=== PATIENT | female | born 2000 | race Caucasian/White ===

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

== ENCOUNTER 2018-01-13 20:42 | Emergency (ER) | payer MEDICAID ==
[~2018-01-13] VITALS: Ht 185.4 cm; Wt 83.9 kg
[2018-01-13 20:49] VITALS: BP_SYST 154
[2018-01-13] MEDS ORDERED: NAPROXEN 250 MG TABLET PO ONE (22:00)
[2018-01-13] MEDS ORDERED: NAPROXEN 250 MG TABLET ONE (22:11)
[2018-01-13 22:20] VITALS: BP_SYST 154
== END 2018-01-13 22:20 | disposition home or self-care (01) ==
LOC: SED 20:42
DX: M70.31 Other bursitis of elbow, right elbow (principal); F41.9 Anxiety disorder, unspecified; F32.9 Major depressive disorder, single episode, unspecified; J45.909 Unspecified asthma, uncomplicated; R03.0 Elevated blood-pressure reading, without diagnosis of hypertension; Z88.0 Allergy status to penicillin; Z88.1 Allergy status to other antibiotic agents
CPT/HCPCS: 99284

== ENCOUNTER 2018-05-14 15:11 | Emergency (ER) | payer MEDICAID ==
[~2018-05-14] VITALS: Ht 182.9 cm; Wt 83.9 kg
[2018-05-14 15:25] VITALS: BP_SYST 127
[2018-05-14 17:15] VITALS: BP_SYST 127
== END 2018-05-14 17:15 | disposition home or self-care (01) ==
LOC: SED 15:11
DX: S63.91XA Sprain of unspecified part of right wrist and hand, initial encounter (principal); F17.210 Nicotine dependence, cigarettes, uncomplicated; J45.909 Unspecified asthma, uncomplicated; F41.9 Anxiety disorder, unspecified; F32.9 Major depressive disorder, single episode, unspecified; Z88.0 Allergy status to penicillin; Z88.1 Allergy status to other antibiotic agents; Z71.6 Tobacco abuse counseling; W22.8XXA Striking against or struck by other objects, initial encounter; Y93.89 Activity, other specified; Y92.89 Other specified places as the place of occurrence of the external cause; Y99.8 Other external cause status
CPT/HCPCS: 99283

== ENCOUNTER 2018-08-17 16:13 | Emergency (ER) | payer MEDICAID ==
[~2018-08-17] VITALS: Ht 185.4 cm; Wt 84.4 kg
[2018-08-17 16:20] VITALS: BP_SYST 141
== END 2018-08-17 17:54 | disposition left against medical advice (07) ==
LOC: SED 16:13
DX: J00 Acute nasopharyngitis [common cold] (principal); R05 Cough; F41.9 Anxiety disorder, unspecified; F32.9 Major depressive disorder, single episode, unspecified; Z53.21 Procedure and treatment not carried out due to patient leaving prior to being seen by health care provider

== ENCOUNTER 2018-08-18 09:48 | Emergency (ER) | payer MEDICAID ==
[~2018-08-18] VITALS: Ht 185.4 cm; Wt 84.4 kg
[2018-08-18 10:15] VITALS: BP_SYST 135
--- NOTE | 2018-08-18 10:15 | NUR ---
Patient to ER bed 5 to gown for evaluation. Side rails up. Report given to BRODIE Cosme.
--- NOTE | 2018-08-18 10:26 | NUR ---
Patient is awake, alert, and oriented x4. States, "I'm feeling like I can't breathe, because I'm sick." Patient reports feeling like this for 5 days.
--- NOTE | 2018-08-18 10:45 | NUR ---
ER Dr. Matthew at bedside examining patient.
[2018-08-18 11:00] VITALS: BP_SYST 128
--- NOTE | 2018-08-18 11:00 | NUR ---
Patient given written and verbal discharge instructions and verbalizes understanding. ER MD discussed with patient the results and treatment provided. Patient in stable condition. ID arm band removed. Rx of promethazine with codeine given. Patient educated on pain management and to follow up with PMD. Pain Scale 0/10. Opportunity for questions provided and answered. Medication side effect fact sheet provided.
== END 2018-08-18 11:00 | disposition home or self-care (01) ==
LOC: SED 09:48
DX: J06.9 Acute upper respiratory infection, unspecified (principal); J45.909 Unspecified asthma, uncomplicated; F41.9 Anxiety disorder, unspecified; R03.0 Elevated blood-pressure reading, without diagnosis of hypertension; F17.210 Nicotine dependence, cigarettes, uncomplicated; F32.9 Major depressive disorder, single episode, unspecified; Z88.0 Allergy status to penicillin; Z88.1 Allergy status to other antibiotic agents; Z71.6 Tobacco abuse counseling
CPT/HCPCS: 93005; 99283

== ENCOUNTER 2019-02-23 17:17 | Emergency (ER) | payer MEDICAID ==
[~2019-02-23] VITALS: Ht 185.4 cm; Wt 86.2 kg
[2019-02-23 18:30] VITALS: BP_SYST 119
[2019-02-23] MEDS: NITROFURANTOIN MONOHYD/M-CRYST 100 MG CAPSULE PO ONE (20:32)
[2019-02-23] MEDS: PHENAZOPYRIDINE HCL 100 MG TABLET PO ONE (20:32)
[2019-02-23 20:36] VITALS: BP_SYST 118
[2019-02-23] MEDS ORDERED: NITROFURANTOIN MONOHYD/M-CRYST 100 MG CAPSULE PO ONE (20:45)
[2019-02-23] MEDS ORDERED: PHENAZOPYRIDINE HCL 100 MG TABLET ONE (20:45)
[2019-02-23 21:00] LABS: BILIRUBIN,URINE NEGATIVE (NEGATIVE); BLOOD, URINE 3+ (NEGATIVE); CLARITY/URINE CLEAR (CLEAR); COLOR,URINE YELLOW (YELLOW); GLUCOSE,URINE NEGATIVE (NEGATIVE); KETONES,URINE NEGATIVE (NEGATIVE); LEUKOCYTE ESTERASE ,URINE 1+ (NEGATIVE); NITRITE, URINE NEGATIVE (NEGATIVE); PROTEIN URINE NEGATIVE (NEGATIVE); UROBILINOGEN,URINE 0.2 (0.2-1.0)
[2019-02-23 21:19] LABS: BACTERIA,URINE MODERATE /HPF (None Seen)
[2019-02-26 05:10] LABS: CHLAMYDIA TRACHOMATIS NAA Negative (Negative); NEISSERIA GONORRHOEAE NAA Negative (Negative)
== END 2019-02-23 20:36 | disposition home or self-care (01) ==
LOC: SED 17:17
DX: N39.0 Urinary tract infection, site not specified (principal); J45.998 Other asthma; E11.21 Type 2 diabetes mellitus with diabetic nephropathy; F41.8 Other specified anxiety disorders; F32.89 Other specified depressive episodes; Z88.1 Allergy status to other antibiotic agents; Z13.89 Encounter for screening for other disorder; Z88.0 Allergy status to penicillin
CPT/HCPCS: 81000-TC; 81025; 87086; 87186-TC; 87491; 87591; 99283

== ENCOUNTER 2019-06-17 17:21 | Emergency (ER) | payer MEDICAID ==
[~2019-06-17] VITALS: Ht 185.4 cm; Wt 93.0 kg
[2019-06-17 17:21] VITALS: BP_SYST 142
--- NOTE | 2019-06-17 21:08 | NUR ---
Patient to ER bed CH1 for evaluation. Side rails up.
--- NOTE | 2019-06-17 21:11 | NUR ---
Pt AAOx4 ambulated into ED c/o L sided chest pain radiating to back with SOB and nausea x "a few days." Pt reports she has had increased frequency of these episodes. Hx of panic attacks. Skin pink dry and warm, breathig even and unlabored. No other injuries/complaints per pt/noted. Will continue to monitor.
--- NOTE | 2019-06-17 21:30 | NUR ---
ER Dr. Brown at bedside examining patient.
[2019-06-17 21:56] LABS: BASOPHILS % (AUTO) 0.5 % (0.0-2.0); EOSINOPHILS # (AUTO) 0.1 K/uL (0.0-0.4); HEMATOCRIT 43.2 % (36-48); HEMOGLOBIN 14.2 g/dL (12.0-16.0); LYMPHOCYTES # (AUTO) 2.4 K/uL (1.0-5.5); LYMPHOCYTES % (AUTO) 34.7 % (20.5-51.5); MEAN CORPUSCULAR HEMOGLOBIN 29 pg (27-31); MEAN CORPUSCULAR HGB CONC 33 % (32-36); MEAN CORPUSCULAR VOLUME 88 fL (79.0-98.0); MONOCYTES # (AUTO) 0.5 K/uL (0.0-1.0); MONOCYTES % (AUTO) 7.6 % (1.7-9.3); NEUTROPHILS # (AUTO) 3.9 K/uL (1.8-7.7); NEUTROPHILS % (AUTO) 56.2 % (40.0-70.0); PLATELET COUNT (AUTO) 262 K/uL (130-430); RED BLOOD CELL COUNT(AUTO) 4.92 MIL/uL (4.2-6.2)
[2019-06-17 22:08] LABS: CALCIUM 9.1 mg/dL (8.4-11.0); CREATININE 0.89 mg/dL (0.55-1.30); POTASSIUM 3.9 mmol/L (3.5-5.1)
[2019-06-17 22:19] LABS: ALBUMIN 4.4 g/dL (3.4-4.8); TOTAL BILIRUBIN 0.5 mg/dL (0.0-1.0)
--- NOTE | 2019-06-17 23:03 | NUR ---
Patient given written and verbal discharge instructions and verbalizes understanding. ER MD Brown discussed with patient the results and treatment provided. Patient in stable condition. ID arm band removed. No Rx given. Patient educated on pain management and to follow up with PMD. Pain Scale 0. Opportunity for questions provided and answered. Medication side effect fact sheet provided.
[2019-06-17 23:04] VITALS: BP_SYST 138
== END 2019-06-17 23:03 | disposition home or self-care (01) ==
LOC: SED 17:21
DX: R07.89 Other chest pain (principal); J45.909 Unspecified asthma, uncomplicated; E11.9 Type 2 diabetes mellitus without complications; F41.9 Anxiety disorder, unspecified; F32.9 Major depressive disorder, single episode, unspecified; Z88.0 Allergy status to penicillin; Z88.1 Allergy status to other antibiotic agents; Z87.891 Personal history of nicotine dependence
CPT/HCPCS: 36415; 71045; 80053; 83880; 84484; 85025; 99284

== ENCOUNTER 2020-09-20 10:56 | Emergency (ER) | payer MEDICAID ==
[~2020-09-20] VITALS: Ht 182.9 cm; Wt 104.3 kg
[2020-09-20 11:06] VITALS: BP_SYST 119
[2020-09-20] MEDS ORDERED: IBUP-1969 PO (13:35)
[2020-09-20] MEDS ORDERED: HYDR-3917 PO (13:35)
[2020-09-20 14:28] VITALS: BP_SYST 119
== END 2020-09-20 14:28 | disposition home or self-care (01) ==
LOC: SED 10:56
DX: S60.221A Contusion of right hand, initial encounter (principal); E11.9 Type 2 diabetes mellitus without complications; J45.909 Unspecified asthma, uncomplicated; F41.9 Anxiety disorder, unspecified; Z88.0 Allergy status to penicillin; Z88.1 Allergy status to other antibiotic agents; W22.8XXA Striking against or struck by other objects, initial encounter; Y93.89 Activity, other specified; Y92.89 Other specified places as the place of occurrence of the external cause; Y99.8 Other external cause status
CPT/HCPCS: 99283